=== PATIENT | female | born 1940 | race Caucasian/White ===

== ENCOUNTER 2016-05-12 16:29 | Emergency (ER) | payer OTHER ==
[~2016-05-12] VITALS: Ht 162.6 cm; Wt 68.0 kg
[~2016-05-12 16:29] MED LIST: APIX5TAB PO; GLIP-115 PO; LISI-646 PO; METF-312 PO; METO-158 PO; SIMV-8 PO
[2016-05-12 17:29] LABS: Basophils # (auto) 0 uL; Basophils % (auto) 0.3 % (0.0-2.0); Eosinophils # (auto) 0.1 uL; Eosinophils % (auto) 0.6 % (0.0-7.0); Hematocrit 30.1 % (36.0-46.0); Hemoglobin 9.9 g/dL (12.2-16.2); Lymphocytes # (auto) 0.8 uL; Lymphocytes % (auto) 6.1 % (10.0-50.0); Mean Corpuscular Hemoglobin 27.1 pg (28.0-32.0); Mean Corpuscular Volume 82.2 fL (80.0-100.0); Mean Platelet Volume 9.8 fL (7.4-10.4); Monocytes # (auto) 1.3 uL; Monocytes % (auto) 9.6 % (0.0-12.0); Neutrophils # (auto) 11.6 uL; Neutrophils % (auto) 83.4 % (37.0-80.0); Platelet Count (auto) 329 10^3/uL (140-450); Red Cell Distribution Width 17.7 % (11.6-16.0); White Blood Cell 13.9 10^3/uL (4.4-10.8)
[2016-05-12 17:48] LABS: Albumin 2.5 g/dL (3.4-5.0); Anion Gap 12 (5-15); Aspartate Aminotransferase 63 U/L (15-37); BUN/Creatinine Ratio 12.2; Blood Urea Nitrogen 12 mg/dL (7-18); Carbon Dioxide 22 mmol/L (21-32); Chloride 103 mmol/L (98-107); GFR African American 71 mL/min; GFR Non-African American 59 mL/min; Glucose 99 mg/dL (74-106); Sodium 137 mmol/L (136-145)
[2016-05-12 17:55] LABS: Alkaline Phosphatase 56 U/L (45-117); Bilirubin, Total 0.7 mg/dL (0.2-1.0); Total Protein 6.4 g/dL (6.4-8.2)
[2016-05-12 18:00] LABS: Magnesium 0.7 mg/dL (1.6-2.6)
[2016-05-12] MEDS: MAGNESIUM SULFATE 1GM/100ML 100 ML IV SCH ×2 (18:30→19:58)
[2016-05-12] MEDS ORDERED: SODIUM CHLORIDE 0.9% 500 ML IV ONE (18:45)
[2016-05-12] MEDS ORDERED: PIPERACILLIN-TAZOB 3.375GM 100 ML IV ONE (19:00)
[2016-05-12] MEDS ORDERED: SODIUM CHLORIDE 0.9% 1,000 ML IV ONE (19:00)
[2016-05-12 21:18] VITALS: BP 137/52
== END 2016-05-12 21:55 | disposition home or self-care (01) ==
LOC: ER 16:31
DX: R41.82 Altered mental status, unspecified (principal); E83.42 Hypomagnesemia; Z88.0 Allergy status to penicillin; Z98.51 Tubal ligation status; Z90.89 Acquired absence of other organs
CPT/HCPCS: 36415; 70450; 80053; 80320; 82962; 83735; 84484; 85025; 93005; 96361; 96365; 99285; J2543; J3475; J7030

== ENCOUNTER 2016-05-18 16:34 | Observation (INO) | payer OTHER ==
[~2016-05-18] VITALS: Ht 162.6 cm; Wt 63.5 kg
[2016-05-18 17:35] LABS: Basophils # (auto) 0.1 uL; Basophils % (auto) 0.5 % (0.0-2.0); Eosinophils # (auto) 0.1 uL; Eosinophils % (auto) 0.9 % (0.0-7.0); Hematocrit 28.7 % (36.0-46.0); Hemoglobin 9.5 g/dL (12.2-16.2); Lymphocytes % (auto) 8.9 % (10.0-50.0); Mean Platelet Volume 9.8 fL (7.4-10.4); Monocytes % (auto) 9.1 % (0.0-12.0); Neutrophils # (auto) 8.9 uL; Neutrophils % (auto) 80.6 % (37.0-80.0); Platelet Count (auto) 417 10^3/uL (140-450); Red Cell Distribution Width 17.8 % (11.6-16.0); White Blood Cell 11.1 10^3/uL (4.4-10.8)
[2016-05-18 17:40] LABS: Albumin 2.5 g/dL (3.4-5.0); BUN/Creatinine Ratio 8.8; Calcium 11.3 mg/dL (8.5-10.1); Potassium 3.3 mmol/L (3.5-5.1)
[2016-05-18 17:43] LABS: Bilirubin, Total 0.4 mg/dL (0.2-1.0); Total Protein 6.1 g/dL (6.4-8.2)
[2016-05-18 18:09] LABS: Magnesium 0.9 mg/dL (1.6-2.6)
[2016-05-18] MEDS: MAGNESIUM SULFATE 1GM/100ML 100 ML IV SCH ×3 (18:52→22:27)
[2016-05-18] MEDS ORDERED: POTASSIUM CHL 20 Meq TABLET PO ONE (19:45)
[2016-05-18] MEDS ORDERED: MORPHINE SULFATE 4 MG/ML SYRG IV ONE (20:00)
[2016-05-18] MEDS ORDERED: ONDANSETRON HCL 4 MG/2 ML VIAL IV ONE (20:00)
[2016-05-18 20:49] LABS: Partial Thromboplastin Time 26.8 sec (22.64-33.71)
[2016-05-18 20:57] LABS: INR 1.25 (0.9-1.15); Prothrombin Time 13.5 sec (9.37-12.3)
[2016-05-18] MEDS ORDERED: POTASSIUM CHL 10% (20 MEQ/15ML) ORAL SOLN PO ONE (21:00)
[2016-05-18 22:21] LABS: B-Type Natriuretic Peptide 232.55 pg/mL (0-100); Temperature: 23.5 C (20.0-25.0)
[2016-05-18 23:58] VITALS: BP 107/65
[2016-05-19] MEDS ORDERED: HYDROmorphone HCL 2 MG/ML VL IV ONE (01:15)
[2016-05-19] MEDS ORDERED: ONDANSETRON HCL 4 MG/2 ML VIAL IV ONE (01:15)
== END 2016-05-19 01:21 | disposition home or self-care (01) | DRG 641 ==
LOC: ER 16:46 → OVERFLOW 22:06 → ER 05-19 01:21
PROVIDERS: ADMIT Emergency Medicine; ATTEND Emergency Medicine
DX: E83.42 Hypomagnesemia (principal); E87.6 Hypokalemia; E86.0 Dehydration; R53.1 Weakness; E11.9 Type 2 diabetes mellitus without complications; Z79.01 Long term (current) use of anticoagulants; Z88.0 Allergy status to penicillin
CPT/HCPCS: 36415; 71010; 74176; 80053; 82962; 83735; 83880; 84484; 85025; 85379; 85610; 85730; 93005; 96365; 96366; 96375; 96376; 99285; G0378; J1170; J2270; J2405; J3475